=== PATIENT | female | born 1945 ===

== ENCOUNTER 2019-06-13 12:11 | Outpatient (REF) | payer MEDICARE, MEDICAID, SELFPAY ==
[2019-06-13 21:23] LABS: Abs Immature Grans 0.03 k/cumm (0.0-0.09); Absolute Basophil Count 0.02 k/cumm (0.0-0.2); Absolute Eosinophil Count 0.12 k/cumm (0.0-0.7); Absolute Lymphocyte Count 1.28 k/cumm (1.2-3.4); Absolute Neutrophil Count 4.66 k/cumm (1.2-6.7); Basophils % 0.3; Eosinophils % 1.8; HCT 36.9 % (36.0-46.0); Immature Grans % 0.5; Lymphocytes % 19.7; Mean Corp. HGB Concentration 29.8 g/dL (32.0-36.0); Mean Corpuscular Hemoglobin 30.2 pg (27.0-33.0); Mean Corpuscular Volume 101.4 fL (80-95); Mean Platelet Volume 11.2 fL (8.0-11.0); Monocytes % 6.1; Neutrophils % 71.6; Platelet Count 229 x1000/uL (130-400); RBC 3.64 m/cumm (4.00-5.20); White Blood Cell Count 6.51 k/cumm (4.4-10.8)
[2019-06-13 21:28] LABS: BUN 14 mg/dL (7-18); CREATININE 0.86 mg/dL (0.55-1.02); Calcium 9.7 mg/dL (8.5-10.1); Chloride 104 mmol/L (98-107); Glucose 86 mg/dL (70-100); Sodium 144 mmol/L (136-145); TSH 0.77 uIU/mL (0.36-3.74)
== END 2019-06-13 12:31 ==
LOC: NCHCN 12:11
PROVIDERS: PCP Internal Medicine; Visit Provider Internal Medicine
DX: I10 Essential (primary) hypertension (principal); I42.9 Cardiomyopathy, unspecified; R53.83 Other fatigue
CPT/HCPCS: 80048; 84443; 85025

== ENCOUNTER 2019-08-08 16:50 | Outpatient (REF) | payer MEDICARE, MEDICAID, SELFPAY ==
[2019-08-08 21:21] LABS: Anion Gap 5.2 mmol/L (3-11); BUN 17 mg/dL (7-18); CO2 35.8 mmol/L (21.0-32.0); CREATININE 1.41 mg/dL (0.55-1.02); Calcium 8.6 mg/dL (8.5-10.1); Chloride 105 mmol/L (98-107); Estimated GFR 36.26 (mL/min/1.73m2); Glucose 125 mg/dL (70-100); Potassium 4.3 mmol/L (3.5-5.1); Sodium 146 mmol/L (136-145)
== END 2019-08-08 17:10 ==
LOC: NCHCN 16:50
PROVIDERS: PCP Internal Medicine; Visit Provider Internal Medicine
DX: R53.83 Other fatigue (principal); I10 Essential (primary) hypertension
CPT/HCPCS: 80048

== ENCOUNTER 2019-08-15 10:06 | Outpatient (REF) | payer MEDICARE, MEDICAID, SELFPAY ==
[2019-08-15 21:14] LABS: Anion Gap 4.2 mmol/L (3-11); BUN 16 mg/dL (7-18); CO2 34.8 mmol/L (21.0-32.0); CREATININE 1.39 mg/dL (0.55-1.02); Calcium 9.1 mg/dL (8.5-10.1); Chloride 105 mmol/L (98-107); Estimated GFR 36.86 (mL/min/1.73m2); Glucose 146 mg/dL (70-100); Potassium 5.3 mmol/L (3.5-5.1); Sodium 144 mmol/L (136-145)
== END 2019-08-15 10:26 ==
LOC: NCHCN 10:06
PROVIDERS: PCP Internal Medicine; Visit Provider Internal Medicine
DX: I10 Essential (primary) hypertension (principal)
CPT/HCPCS: 80048

== ENCOUNTER 2019-10-03 21:11 | Outpatient (REF) | payer MEDICARE, MEDICAID, SELFPAY ==
[2019-10-03 22:00] LABS: Anion Gap 2.6 mmol/L (3-11); BUN 14 mg/dL (7-18); CO2 40.4 mmol/L (21.0-32.0); CREATININE 1.17 mg/dL (0.55-1.02); Calcium 8.8 mg/dL (8.5-10.1); Chloride 103 mmol/L (98-107); Estimated GFR 44.97 (mL/min/1.73m2); Glucose 153 mg/dL (70-100); Potassium 4.6 mmol/L (3.5-5.1); Sodium 146 mmol/L (136-145)
== END 2019-10-03 21:31 ==
LOC: NCHCN 21:11
PROVIDERS: PCP Internal Medicine; Visit Provider Internal Medicine
DX: I42.9 Cardiomyopathy, unspecified (principal)
CPT/HCPCS: 80048

== ENCOUNTER 2020-03-16 11:35 | Outpatient (REF) | payer MEDICARE, MEDICAID, SELFPAY ==
[2020-03-16 20:52] LABS: Abs Immature Grans 0.02 k/cumm (0.0-0.09); Absolute Basophil Count 0.01 k/cumm (0.0-0.2); Absolute Eosinophil Count 0.17 k/cumm (0.0-0.7); Absolute Lymphocyte Count 1.31 k/cumm (1.2-3.4); Absolute Monocyte Count 0.37 k/cumm (0.11-0.7); Absolute Neutrophil Count 5.92 k/cumm (1.2-6.7); Basophils % 0.1; Eosinophils % 2.2; HCT 34.1 % (36.0-46.0); HGB 10.3 g/dL (12.0-15.5); Immature Grans % 0.3 %; Lymphocytes % 16.8; Mean Corp. HGB Concentration 30.2 g/dL (32.0-36.0); Mean Corpuscular Hemoglobin 31.7 pg (27.0-33.0); Mean Corpuscular Volume 104.9 fL (80-95); Mean Platelet Volume 11.1 fL (8.0-11.0); Monocytes % 4.7; Neutrophils % 75.9; Platelet Count 212 x1000/uL (130-400); RBC 3.25 m/cumm (4.00-5.20); RBC Distribution Width 13.7 % (11.7-14.6)
[2020-03-16 21:18] LABS: Hemoglobin A1C 5.7 % (3.8-5.6)
[2020-03-16 21:20] LABS: ALT 17 U/L (14-59); AST 19 U/L (15-37); Albumin 3.3 g/dL (3.4-5.0); Alkaline Phosphatase 93 U/L (46-116); BUN 15 mg/dL (7-18); Bilirubin, Total 0.5 mg/dL (0.2-1.0); CREATININE 1.21 mg/dL (0.55-1.02); Calcium 8.7 mg/dL (8.5-10.1); Chloride 105 mmol/L (98-107); Estimated GFR 43.26 (mL/min/1.73m2); Glucose 127 mg/dL (74-106); Potassium 4.2 mmol/L (3.5-5.1); Sodium 145 mmol/L (136-145); TSH 0.92 uIU/mL (0.36-3.74); Total Protein 6.8 g/dL (6.4-8.2)
== END 2020-03-16 11:55 ==
LOC: NCHCN 11:35
PROVIDERS: PCP Internal Medicine; Visit Provider Internal Medicine
DX: R53.83 Other fatigue (principal); N18.3 Chronic kidney disease, stage 3 (moderate); R73.09 Other abnormal glucose
CPT/HCPCS: 80053; 83036; 84443; 85025

== ENCOUNTER 2020-05-04 22:09 | Outpatient (REF) | payer MEDICARE, MEDICAID, SELFPAY ==
[2020-05-04 22:37] LABS: Abs Immature Grans 0.02 k/cumm (0.0-0.09); Absolute Basophil Count 0.01 k/cumm (0.0-0.2); Absolute Eosinophil Count 0.08 k/cumm (0.0-0.7); Absolute Lymphocyte Count 0.63 k/cumm (1.2-3.4); Absolute Monocyte Count 0.42 k/cumm (0.11-0.7); Absolute Neutrophil Count 7.13 k/cumm (1.2-6.7); Basophils % 0.1; HCT 33.3 % (36.0-46.0); HGB 9.3 g/dL (12.0-15.5); Immature Grans % 0.2 %; Lymphocytes % 7.6; Mean Corp. HGB Concentration 27.9 g/dL (32.0-36.0); Mean Platelet Volume 11.9 fL (8.0-11.0); Monocytes % 5.1; Platelet Count 178 x1000/uL (130-400); RBC Distribution Width 14.7 % (11.7-14.6); White Blood Cell Count 8.29 k/cumm (4.4-10.8)
[2020-05-04 22:58] LABS: Diff Comment RBC Morph Reviewed
[2020-05-04 22:59] LABS: Anisocytosis 1+; Basophilic Stippling 1+; Hypochromasia 2+; Macrocytosis 2+; Polychromasia Present
[2020-05-04 23:11] LABS: ALT 16 U/L (14-59); AST 16 U/L (15-37); Albumin 2.8 g/dL (3.4-5.0); Alkaline Phosphatase 76 U/L (46-116); Anion Gap 2.2 mmol/L (3-11); BUN 16 mg/dL (7-18); Bilirubin, Total 0.5 mg/dL (0.2-1.0); CO2 39.8 mmol/L (21.0-32.0); Calcium 8.6 mg/dL (8.5-10.1); Chloride 104 mmol/L (98-107); Creatine Kinase 29 U/L (26-192); Estimated GFR 43.68 (mL/min/1.73m2); Glucose 183 mg/dL (74-106); NT-proBNP 621 pg/mL (<300); Potassium 4.2 mmol/L (3.5-5.1); Sodium 146 mmol/L (136-145); Total Protein 5.9 g/dL (6.4-8.2)
== END 2020-05-04 22:29 ==
LOC: NCHCN 22:09
PROVIDERS: PCP Internal Medicine; Visit Provider Nurse Practitioner Community Health
DX: I42.9 Cardiomyopathy, unspecified (principal); Z79.01 Long term (current) use of anticoagulants; I34.0 Nonrheumatic mitral (valve) insufficiency; Z86.79 Personal history of other diseases of the circulatory system
CPT/HCPCS: 80053; 82550; 83880; 85025